=== PATIENT | male | born 1965 | race Caucasian/White ===

== ENCOUNTER 2018-03-07 08:51 | Emergency (ER) | payer BC, OTHER ==
[~2018-03-07] VITALS: Ht 180.3 cm; Wt 81.6 kg
--- NOTE | 2018-03-07 09:08 | NUR ---
pt is in room #2a. dr almazan evaluated the pt.
[2018-03-07] MEDS ORDERED: TDAP DIPH,PERTUSS,TET VAC/PF 0.5 ML DISP.SYRIN IM ONE ×2 (09:25→09:30)
--- NOTE | 2018-03-07 09:26 | NUR ---
PT WAS D/C TO HOME. D/C INSTRUCTIONS GIVEN TO THE PT.
[2018-03-07 09:27] VITALS: BP 131/68
== END 2018-03-07 09:27 | disposition home or self-care (01) ==
LOC: ER 08:51
DX: S61.231A Puncture wound without foreign body of left index finger without damage to nail, initial encounter (principal); W26.8XXA Contact with other sharp object(s), not elsewhere classified, initial encounter; Y93.89 Activity, other specified; Y92.89 Other specified places as the place of occurrence of the external cause; Y99.8 Other external cause status
CPT/HCPCS: 90715; A4663

== ENCOUNTER 2019-01-02 08:48 | Emergency (ER) | payer BC ==
[~2019-01-02] VITALS: Ht 177.8 cm; Wt 66.2 kg
[2019-01-02] MEDS ORDERED: ASPI81TA31 PO (09:06)
[2019-01-02] MEDS ORDERED: OMEP20TA20 PO (09:06)
[2019-01-02] MEDS ORDERED: MECLIZINE HCL 25 MG TABLET ONE (09:53)
[2019-01-02] MEDS ORDERED: ONDANSETRON 4 MG/2 ML VIAL ONE (09:53)
[2019-01-02] MEDS: MECLIZINE HCL 25 MG TABLET PO ONE (09:57)
[2019-01-02] MEDS: IV NORMAL SALINE 1000 ML BAG IV ONE (09:57)
[2019-01-02] MEDS: ONDANSETRON 4 MG/2 ML VIAL IV ONE (09:57)
[2019-01-02 10:06] LABS: BASOPHILS % (AUTO) 0.5 % (0.0-2.0); EOSINOPHILS % (AUTO) 0.4 % (0.0-7.0); HEMATOCRIT 46.1 % (36.7-47.1); HEMOGLOBIN 15.2 g/dL (12.5-16.3); LYMPHOCYTES # (AUTO) 1.6 K/uL (20.0-40.0); MEAN CORPUSCULAR HEMOGLOBIN 30.3 uug (23.8-33.4); MEAN CORPUSCULAR HGB CONC 33 g/dL (32.5-36.3); MEAN CORPUSCULAR VOLUME 91.9 fL (73.0-96.2); MONOCYTES # (AUTO) 0.6 K/uL (2.0-10.0); MONOCYTES % (AUTO) 7.6 % (0.0-11.0); NEUTROPHILS # (AUTO) 5.5 K/uL (1.8-8.9); NEUTROPHILS % (AUTO) 70.5 % (38.5-71.5); PLATELET COUNT (AUTO) 162 K/uL (152-348); RED BLOOD CELL COUNT(AUTO) 5.02 MIL/uL (4.06-5.63); WHITE BLOOD COUNT (AUTO) 7.8 K/uL (3.6-10.2)
[2019-01-02 10:10] LABS: CREATININE 1.1 mg/dL (0.6-1.3)
[2019-01-02 10:16] LABS: BILIRUBIN,DIRECT 0.2 mg/dL (0.0-0.2); BILIRUBIN,TOTAL 0.8 mg/dL (0.2-1.0); TOTAL PROTEIN, SERUM 7.2 g/dL (6.4-8.2)
[2019-01-02] MEDS: MAGNESIUM SULFATE/D5W 100 ML IV SCH (12:15)
--- NOTE | 2019-01-02 13:29 | NUR ---
PT WAS EVALUATED BY DR ADAMES. PT WAS D/C'd TO HOME. D/C INSTRUCTIONS GIVEN TO THE PT BY DR ADAMES.
[2019-01-02 13:30] VITALS: BP 129/76
== END 2019-01-02 13:31 | disposition home or self-care (01) ==
LOC: ER 08:48
DX: R42 Dizziness and giddiness (principal); K21.9 Gastro-esophageal reflux disease without esophagitis; Z79.82 Long term (current) use of aspirin; Z79.899 Other long term (current) drug therapy
CPT/HCPCS: 36415; 70030-TC; 70450; 85025; 93005; A4663; J2405; J7030; J8597

== ENCOUNTER 2022-09-23 14:33 | Emergency (ER) | payer BC ==
[~2022-09-23] VITALS: Ht 177.8 cm; Wt 66.2 kg
[~2022-09-23 14:33] MED LIST: ASPI81TA31 PO; OMEP20TA20 PO
[2022-09-23] MEDS ORDERED: IBUPROFEN 400 MG TABLET PO ONE (15:15)
[2022-09-23] MEDS ORDERED: ASPIRIN 81 MG TAB.CHEW PO ONE (15:15)
[2022-09-23] MEDS ORDERED: IBUPROFEN 400 MG TABLET ONE (15:22)
[2022-09-23] MEDS ORDERED: ASPIRIN 81 MG TAB.CHEW ONE (15:22)
[2022-09-23 15:24] LABS: HEMATOCRIT 41.6 % (36.7-47.1); MEAN CORPUSCULAR HEMOGLOBIN 31.3 uug (23.8-33.4); MEAN CORPUSCULAR VOLUME 93.4 fL (73.0-96.2); PLATELET COUNT (AUTO) 138 K/uL (152-348)
[2022-09-23 15:34] LABS: CARBON DIOXIDE 32 mmol/L (21-32); CHLORIDE 104 mmol/L (98-107); CREATININE 1.1 mg/dL (0.6-1.3); GLUCOSE 104 mg/dL (74-106); POTASSIUM 4.1 mmol/L (3.5-5.1); UREA NITROGEN, BLOOD 29 mg/dL (7-18)
[2022-09-23 15:36] LABS: *BILIRUBIN,URIN NEGATIVE (NEGATIVE); *BLOOD, URINE NEGATIVE (NEGATIVE); *CLARITY,URINE CLEAR (CLEAR); *COLOR,URINE YELLOW (YELLOW); *KETONES,URINE NEGATIVE (NEGATIVE); *UROBILINOGEN,URINE 0.2 E.U./dl (NORMAL); LEUKOCYTE ESTERASE ,URINE NEGATIVE (NEGATIVE); NITRITE, URINE NEGATIVE (NEGATIVE); PH,URINE 8.5 (5.0-8.0); UGLUCOSE NEGATIVE (NEGATIVE)
[2022-09-23 15:47] LABS: ALANINE AMINOTRANSFERASE 29 U/L (16-63); ALKALINE PHOSPHATASE 102 U/L (50-136); ASPARTATE AMINOTRANSFERASE 18 U/L (15-37); BILIRUBIN,DIRECT 0.1 mg/dL (0.0-0.2); BILIRUBIN,TOTAL 0.5 mg/dL (0.2-1.0); TOTAL PROTEIN, SERUM 6.9 g/dL (6.4-8.2)
--- NOTE | 2022-09-23 16:06 | NUR ---
PT IS IN ROOM #1A. DR LOUIS EVALUATED THE PT.
--- NOTE | 2022-09-23 18:32 | NUR ---
PT WAS D/C'd TO HOME. D/C INSTRUCTIONS GIVEN TO THE PT BY DR LOUIS.
[2022-09-23 18:33] VITALS: BP 137/75
== END 2022-09-23 18:34 | disposition home or self-care (01) ==
LOC: ER 14:33
DX: M54.9 Dorsalgia, unspecified (principal); R42 Dizziness and giddiness; K21.9 Gastro-esophageal reflux disease without esophagitis; Z86.73 Personal history of transient ischemic attack (TIA), and cerebral infarction without residual deficits; Z79.82 Long term (current) use of aspirin
CPT/HCPCS: 36415; 71045; 84484; 85025; 85730; 93005; A4663; J7040